=== PATIENT | male | born 1960 | race African-American/Black ===

== ENCOUNTER 2023-02-05 21:22 | Emergency (ER) | payer MEDICAID, OTHER ==
[~2023-02-05] VITALS: Ht 172.7 cm; Wt 80.0 kg
[2023-02-05 21:30] VITALS: O2SAT 98
[2023-02-05 21:40] VITALS: TEMP 98.7
[2023-02-05] MEDS ORDERED: MORPHINE SULFATE 4 MG/ML CPJ (NOT FOR IM USE) IV ONE (22:15)
[2023-02-05] MEDS ORDERED: KETAMINE HCL 50 MG/ML 10ML IV ONE (23:00)
[2023-02-05] MEDS ORDERED: PROPOFOL 200MG/20ML VIAL IV ONE (23:00)
[2023-02-05] MEDS ORDERED: IBUP-2029 MT (23:49)
[2023-02-06] VITALS: BP 115/62; PULSE 85; RESP 20
== END 2023-02-06 00:08 | disposition home or self-care (01) ==
LOC: ER 21:22
DX: S43.005A Unspecified dislocation of left shoulder joint, initial encounter (principal); Y08.89XA Assault by other specified means, initial encounter; Y93.89 Activity, other specified; Y92.89 Other specified places as the place of occurrence of the external cause; Y99.8 Other external cause status
CPT/HCPCS: 99285; 23650; 73030; 99152; J2270; J2704; J3490